=== PATIENT | male | born 1965 | race African-American/Black ===

== ENCOUNTER 2016-12-17 12:30 | Outpatient (CLI) | payer OTHER ==
--- NOTE | 2016-12-17 14:04 | XRay Report ---
AP and lateral lumbar spine. History: Low back pain. Findings: The vertebral body heights and disc spaces well maintained. Alignment is normal. There is mild diffuse osteopenia. The pedicles are intact. Impression: No acute findings.
== END 2016-12-17 12:31 | disposition home or self-care (01) ==
LOC: SPVIMAG 12:30
PROVIDERS: ATTEND Family Medicine
DX: M85.88 Other specified disorders of bone density and structure, other site (principal)
CPT/HCPCS: 72100